=== PATIENT | female | born 1950 | race Caucasian/White ===

== ENCOUNTER 2017-08-09 07:05 | Day surgery (SDC) | payer MEDICARE, BC ==
[~2017-08-09 07:05] MED LIST: Cefuroxime 10 MG/ML SYRINGE EYELF SCH; Lidocaine 1% PF 2 ML SDV INJECT SCH; Pilocarpine 4% Ophth Soln 15 ML Bot EYELF SCH
[2017-08-09] MEDS: Polymyxin B/Trimethoprim 10 ML Bottle EYELF SCH ×3 (07:18→09:03)
[2017-08-09] MEDS: Brimonidine 0.2% Ophth Soln 5 ML Bottle EYELF SCH ×3 (07:22→09:03)
[2017-08-09] MEDS: Phenylephrine 2.5% Ophth Soln 2 ML Bot EYELF SCH ×5 (07:26→08:45)
--- NOTE | 2017-08-09 07:31 | PCM.PREANE ---
Preanesthetic Assessment - Anesthesia/Transfusion/Family Hx Anesthesia History: Prior Anesthesia Without Reaction Family History of Anesthesia Reaction: No Transfusion History: No Prior Transfusion(s) - Review of Systems General: No Symptoms Pulmonary: No Symptoms Cardiovascular: No Symptoms Gastrointestinal: No Symptoms Neurological: No Symptoms Other: Reports: None - Physical Assessment NPO Status Date: 08/08/17 NPO Status Time: 00:00 Pulse: 59 O2 Sat by Pulse Oximetry: 99 Respiratory Rate: 16 Blood Pressure: 140/70 Temperature: 36.1 C Height: 1.63 m Weight: 74.843 kg ASA Class: 1 Mental Status: Alert & Oriented x3 Airway Class: Mallampati = 1 Dentition: Reports: Normal Dentition Thyro-Mental Finger Breadths: 3 Mouth Opening Finger Breadths: 3 ROM/Head Extension: Full Lungs: Clear to Auscultation, Normal Respiratory Effort Cardiovascular: Regular Rate, Regular Rhythm, No Murmurs - Allergies Allergies/Adverse Reactions: Allergies Allergy/AdvReac Type Severity Reaction Status Date / Time No Known Allergies Allergy Verified 08/08/17 11:50 - Blood Blood Available: No Product(s) Available: None - Anesthesia Plan Pre-Op Medication Ordered: None - Acknowledgements Anesthesia Type Planned: MAC Pt an Appropriate Candidate for the Planned Anesthesia: Yes Alternatives and Risks of Anesthesia Discussed w Pt/Guardian: Yes Pt/Guardian Understands and Agrees with Anesthesia Plan: Yes PreAnesthesia Questionnaire - SUBSTANCE USE Smoking Status *Q: Never Smoker Tobacco Use Within Last Twelve Months: No Second Hand Smoke Exposure: No Days Per Week of Alcohol Use: 0 Number of Drinks Per Day: 0 Total Drinks Per Week: 0 Recreational Drug Use History: No - HOME MEDS Home Medications: Home Meds Ascorbic Acid [Vitamin C] 1,000 mg PO DAILY 08/08/17 [History] Cranberry 400 mg PO DAILY 08/08/17 [History] Lutein 10 mg PO DAILY 08/08/17 [History] Multivits,Ca,Minerals/Iron/FA [Women's Daily Formula Caplet] 1 tab PO DAILY [History] - CURRENT (IN HOUSE) MEDS Current Meds: Current Medications Brimonidine Tartrate (Alphagan 0.2% Ophth Soln) 0 ml EYELF ASDIRECTED BRANDEN Stop: 08/09/17 18:00 Last Admin: 08/09/17 07:22 Dose: 1 drop Cefuroxime Sodium (Zinacef) 0 mg EYELF ASDIRECTED BRANDEN Stop: 08/09/17 18:00 Lidocaine HCl (Xylocaine-Mpf 1%) 10 ml INJECT ASDIRECTED BRANDEN Stop: 08/09/17 18:00 Phenylephrine HCl (Thom-Synephrine 2.5% Ophth Soln) 0 ml EYELF ASDIRECTED BRANDEN Stop: 08/09/17 18:00 Pilocarpine HCl (Pilocar 4% Ophth Soln) 0 ml EYELF ASDIRECTED BRANDEN Stop: 08/09/17 18:00 Polymyxin/Trimethoprim Sulfate (Polytrim Ophth Soln) 0 ml EYELF ASDIRECTED BRANDEN Stop: 08/09/17 18:00 Last Admin: 08/09/17 07:18 Dose: 1 drop Tetracaine HCl (Tetracaine 0.5% Steri-Unit Karen) 0 ml EYELF ASDIRECTED BRANDEN Stop: 08/09/17 18:00 Tropicamide (Mydriacyl 1% Ophth Soln) 0 ml EYELF ASDIRECTED BRANDEN Stop: 08/09/17 18:00
[2017-08-09] MEDS: Tetracaine HCl/PF 0.5% 4 ML Bottle EYELF SCH ×2 (08:33→08:51)
--- NOTE | 2017-08-09 09:09 | PCM48HPAN ---
Post Anesthesia Note - EVALUATION WITHIN 48HRS OF ANESTHETIC Vital Signs in Normal Range: Yes Patient Participated in Evaluation: Yes Respiratory Function Stable: Yes Airway Patent: Yes Cardiovascular Function Stable: Yes Hydration Status Stable: Yes Pain Control Satisfactory: Yes Nausea and Vomiting Control Satisfactory: Yes Mental Status Recovered: Yes
== END 2017-08-09 09:14 | disposition home or self-care (01) ==
LOC: JD.SDS 07:05
PROVIDERS: ATTEND Ophthalmology
DX: H26.9 Unspecified cataract (principal); Z79.899 Other long term (current) drug therapy
CPT/HCPCS: 66984; C1780; J0697; A9270-GY

== ENCOUNTER 2017-09-13 08:42 | Day surgery (SDC) | payer MEDICARE, BC ==
[~2017-09-13 08:42] MED LIST changes: -Cefuroxime 10 MG/ML SYRINGE EYELF SCH; +Cefuroxime 10 MG/ML SYRINGE EYERT SCH; -Pilocarpine 4% Ophth Soln 15 ML Bot EYELF SCH; +Pilocarpine 4% Ophth Soln 15 ML Bot EYERT SCH
[2017-09-13] MEDS: Polymyxin B/Trimethoprim 10 ML Bottle EYERT SCH ×3 (09:14→10:55)
[2017-09-13] MEDS: Brimonidine 0.2% Ophth Soln 5 ML Bottle EYERT SCH ×3 (09:18→10:55)
[2017-09-13] MEDS: Phenylephrine 2.5% Ophth Soln 2 ML Bot EYERT SCH ×5 (09:24→10:39)
[2017-09-13] MEDS: Tropicamide 1% Ophth Soln 3 ML Bottle EYERT SCH ×4 (09:28→10:10)
--- NOTE | 2017-09-13 09:51 | PCM.PREANE ---
Preanesthetic Assessment - Procedure Proposed Procedure: Right cataract extraction with implant - Anesthesia/Transfusion/Family Hx Anesthesia History: Prior Anesthesia Without Reaction Family History of Anesthesia Reaction: No Transfusion History: No Prior Transfusion(s) Intubation History: Unknown - Review of Systems General: No Symptoms Pulmonary: No Symptoms Cardiovascular: No Symptoms Gastrointestinal: No Symptoms Neurological: No Symptoms Other: Reports: None - Physical Assessment NPO Status Date: 09/12/17 NPO Status Time: 19:30 O2 Sat by Pulse Oximetry: 98 Respiratory Rate: 16 Vital Signs: Last Vital Signs Temp 37.1 C 09/13/17 09:10 Pulse 61 09/13/17 09:10 Resp 16 09/13/17 09:10 BP 131/67 09/13/17 09:10 Pulse Ox 98 09/13/17 09:10 Height: 1.63 m Weight: 73.482 kg ASA Class: 2 Mental Status: Alert & Oriented x3 Airway Class: Mallampati = 1 Dentition: Reports: Normal Dentition Thyro-Mental Finger Breadths: 3 Mouth Opening Finger Breadths: 5 ROM/Head Extension: Full Lungs: Clear to Auscultation, Normal Respiratory Effort Cardiovascular: Regular Rate, Regular Rhythm - Allergies Allergies/Adverse Reactions: Allergies Allergy/AdvReac Type Severity Reaction Status Date / Time No Known Allergies Allergy Verified 09/12/17 15:11 - Blood Blood Available: No - Anesthesia Plan Pre-Op Medication Ordered: None - Acknowledgements Anesthesia Type Planned: MAC Pt an Appropriate Candidate for the Planned Anesthesia: Yes Alternatives and Risks of Anesthesia Discussed w Pt/Guardian: Yes Pt/Guardian Understands and Agrees with Anesthesia Plan: Yes PreAnesthesia Questionnaire - HOME MEDS Home Medications: Home Meds Ascorbic Acid [Vitamin C] 1,000 mg PO DAILY 08/08/17 [History] Cranberry 400 mg PO DAILY 08/08/17 [History] Lutein 10 mg PO DAILY 08/08/17 [History] Multivits,Ca,Minerals/Iron/FA [Women's Daily Formula Caplet] 1 tab PO DAILY [History] - CURRENT (IN HOUSE) MEDS Current Meds: Current Medications Brimonidine Tartrate (Alphagan 0.2% Ophth Soln) 0 ml EYERT ASDIRECTED BRANDEN Stop: 09/13/17 18:00 Last Admin: 09/13/17 09:18 Dose: 1 drop Cefuroxime Sodium (Zinacef) 0 mg EYERT ASDIRECTED BRANDEN Stop: 09/13/17 18:00 Lidocaine HCl (Xylocaine-Mpf 1%) 0 ml INJECT ASDIRECTED BRANDEN Stop: 09/13/17 18:00 Phenylephrine HCl (Thom-Synephrine 2.5% Ophth Soln) 0 ml EYERT ASDIRECTED BRANDEN Stop: 09/13/17 18:00 Last Admin: 09/13/17 09:40 Dose: 1 drop Pilocarpine HCl (Pilocar 4% Ophth Soln) 0 ml EYERT ASDIRECTED BRANDEN Stop: 09/13/17 18:00 Polymyxin/Trimethoprim Sulfate (Polytrim Ophth Soln) 0 ml EYERT ASDIRECTED BRANDEN Stop: 09/13/17 18:00 Last Admin: 09/13/17 09:14 Dose: 1 drop Tetracaine HCl (Tetracaine 0.5% Steri-Unit Karen) 0 ml EYERT ASDIRECTED BRANDEN Stop: 09/13/17 18:00 Tropicamide (Mydriacyl 1% Ophth Soln) 0 ml EYERT ASDIRECTED BRANDEN Stop: 09/13/17 18:00 Last Admin: 09/13/17 09:44 Dose: 1 drop
[2017-09-13] MEDS: Tetracaine HCl/PF 0.5% 4 ML Bottle EYERT SCH ×2 (10:31→10:49)
--- NOTE | 2017-09-13 11:03 | PCM48HPAN ---
Post Anesthesia Note - EVALUATION WITHIN 48HRS OF ANESTHETIC Vital Signs in Normal Range: Yes Patient Participated in Evaluation: Yes Respiratory Function Stable: Yes Airway Patent: Yes Cardiovascular Function Stable: Yes Hydration Status Stable: Yes Pain Control Satisfactory: Yes Nausea and Vomiting Control Satisfactory: Yes Mental Status Recovered: Yes Pulse Rate: 65 SaO2: 97 Resp Rate: 16 Temperature: 36.4 C Blood Pressure: 125/50 Pulse Rate: 65
== END 2017-09-13 11:08 | disposition home or self-care (01) ==
LOC: JD.SDS 08:42
PROVIDERS: ATTEND Ophthalmology
DX: H25.811 Combined forms of age-related cataract, right eye (principal); H52.31 Anisometropia; H02.831 Dermatochalasis of right upper eyelid; H02.834 Dermatochalasis of left upper eyelid; H40.003 Preglaucoma, unspecified, bilateral; Z79.899 Other long term (current) drug therapy; Z90.89 Acquired absence of other organs; Z98.42 Cataract extraction status, left eye; Z96.1 Presence of intraocular lens; Z83.518 Family history of other specified eye disorder
CPT/HCPCS: A9270-GY; C1780; J0697; J2001